=== PATIENT | male | born 1960 ===

== ENCOUNTER → 2017-01-20 | Outpatient (CLI) | payer OTHER ==
[~2017-01-20] MED LIST: ASPI-482 PO; ATORVASTATIN CA80 MG PO; BUPIVACAINE MPF 0.25% 10 ML VIAL. ONE; CHOL10003 PO; DICL100G18 TP; HYDR25TA9 PO; IOHEXOL 180 MG/ML 10 ML VIAL. ONE; LAMO200T PO; METF500T4 PO; METH-37 PO; MOME13HF IH; MULT-208 PO; OXYC-323 PO; PROVENTIL HFA6.7 GM IH; SILD100T PO; TRAV5DRO EACHEYE; methylPREDNISolone ACETATE 80 MG/ML VIAL. ONE
--- NOTE | 2017-01-20 23:33 | PAIN ---
DATE OF SERVICE: 01/20/2017 INITIAL CONSULTATION FOR PAIN CLINIC CHIEF COMPLAINT: Right hip pain. HISTORY OF PRESENT ILLNESS: This is a 56-year-old male who presents with history of pain for about a year, increasing in his right hip, worse with walking and standing and change in positions. The patient reports that he is on his feet most of his working day, this has been exacerbating as well, only on the right side. The left hip has no real pain or problems. The patient reports it is sharp, throbbing, stabbing, burning and aching, worse with standing and climbing stairs, especially with putting all his weight on one side on his right side. It does awaken him from sleep at night, sometimes all night long, sometimes he is able to sleep. The patient reports it does not affect his bowel or bladder control. It does affect his ability to walk significantly using a cane in his right hand. The patient reports he had some trigger point injections in November 2016, which were not helpful, just in the posterior gluteus. He has been taking some oxycodone, which has been helpful. The patient has not had any other therapies at this time. He is doing some stretching on his own but no other formal therapies or treatment for the pain. The patient did have x-ray of his hip showing [id number] appearance of the right hip joint compared to the left, which appears relatively normal. The patient reports no loss of motor function but significant fatigability with the right leg and hip to the point where he feels unstable. He has not given out on him, and he has not fallen because he is using his cane to walk. The patient reports his disability rate from 0 to 10, 10 being the worst, it is at 9 with family home responsibilities, 8 with occupation, 10 with recreation, 7 with social activity, 5 with sexual behavior, self care and life support activities. PAST MEDICAL HISTORY: Significant for hypertension, type 2 diabetes, glaucoma, weight loss, arthritis in the patient's knees and low back as well as his neck. PREVIOUS SURGERY: Includes a right knee meniscectomy. CURRENT MEDICATIONS: Include oxycodone, hydrochlorothiazide, lamotrigine and daily baby aspirin. ALLERGIES: The patient has no known drug allergies. FAMILY HISTORY: Significant for no major medical problems or conditions that he is aware of. SOCIAL HISTORY: The patient does not drink and does not use tobacco or smoke. 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 REVIEW OF SYSTEMS: The patient's review of systems is positive for those items mentioned in history of present illness. All systems reviewed and otherwise negative. It is complete, full and well documented on the patient's chart. PHYSICAL EXAMINATION: VITAL SIGNS: The patient's blood pressure is 133/79, pulse 105, respirations 18, temperature 98.9 degrees Fahrenheit. Height is 5 feet 10 inches. Weight is 279 pounds. GENERAL: The patient is awake, alert, oriented and appropriate, very pleasant demeanor. HEENT: Head shows normocephalic and atraumatic. Extraocular movements are intact and symmetrical. Oral cavity: His mucous membranes are moist and pink. Dentition is intact. NECK: Shows anterior throat supple without palpable lymphadenopathy noted. Swallow reflex is symmetrical. CHEST: Shows normal on inspection. Breath sounds clear to auscultation bilaterally. HEART: Shows S1 and S2 clear. No murmurs auscultated. ABDOMEN: Obese, soft, nontender, nondistended. No palpable organomegaly. No rebound or guarding demonstrated. BACK: The patient's back shows spine grossly in the midline. Normal-appearing thoracic kyphosis and lumbar lordotic curvature. No previous bruises, lesions, rashes or scars are noted. Lumbar paraspinous muscle shows only some very mild tenderness in the lower lumbar distribution but only diffusely. Cervical paraspinous musculature shows some axpo-[id number] tenderness at the inferior aspect of the cervical paraspinous muscles as well as superomedial trapezius, both right and left, but again full rotational motion of the cervical spine without difficulty as well as of the low back. The patient's upper extremities show deep tendon reflexes at 2+ in the biceps and triceps tendons. Motor exam is strong with 5/5 zigzagger strength and biceps and triceps flexion. Peripheral pulses are 2+ in radial distribution. Lower extremities show deep tendon reflexes at 1+ in the patellar and tendo calcaneus tendons. Motor exam is strong with approximately 4/5 scale on the right with dorsiflexion and extension and quadriceps and hamstring flexion 5/5 on the left. The patient's peripheral pulses are 1+ posterior tibial and dorsalis pedis pulses. Straight leg raising noted to be negative for reproduction of radicular symptoms. Ye's maneuver, however, is positive on the right with external rotation of the right hip compared to the left, which is negative. The patient is able to stand but has difficulty trying to stand with all his weight on his right leg. He does report pain in the groin and in the anterior thigh as well as the lateral thigh. The patient is ambulating with a cane in his right hand, significant antalgic gait favoring his right lower extremity with a significant limp on the right side. IMPRESSION: 1. This is a 56-year-old male with about 1-year history of increasing pain in right hip radiating to the groin and consistent with intra-articular pathology. 2. X-rays of the hip showing significant [id number] appearance of the degenerative joint disease to a severe extent. 3. Type 2 diabetes. 4. Hypertension. 5. Arthritis. PLAN: Options were discussed with the patient including conservative medical management, physical therapy and interventional technique. He would like to pursue interventional techniques. We discussed a right hip intra-articular joint injection using description as well as anatomical models to describe the procedure. The patient would like to proceed with this. Risks were discussed including but not limited to bleeding, infection, possibility of intravascular injection sequelae, spread of local anesthetic and numbness, side effects of steroid medication as well as exposure to fluoroscopy and poor results regarding pain control. The patient understands and wishes to proceed. The patient will return to clinic in approximately 4 weeks for followup and was counseled on return appointment, activity level and side effects to be aware of. DIAGNOSIS: Right hip joint pain with primary osteoarthritis and right hip joint. PROCEDURE: Right intra-articular hip joint injection using C-arm fluoroscopic guidance under sterile prep and drape using local anesthetic. MEDICATION INJECTED: A total of 80 mg Depo-Medrol plus total of 3 mL of 0.25% bupivacaine plus 3 mL of Isovue for contrast. CONDITION AT DISCHARGE: Stable. The patient tolerated the procedure well and had no complications. JETHRO OTTO MD DR: GARRY/jose JOB#: [id number] / [id number]
== END | disposition home or self-care (01) ==
LOC: PNCL 13:15
PROVIDERS: ATTEND Anesthesiology
DX: M16.11 Unilateral primary osteoarthritis, right hip (principal); I10 Essential (primary) hypertension; M19.91 Primary osteoarthritis, unspecified site; E11.39 Type 2 diabetes mellitus with other diabetic ophthalmic complication; H40.9 Unspecified glaucoma; Z88.8 Allergy status to other drugs, medicaments and biological substances
CPT/HCPCS: 20610; J1040; J3490

== ENCOUNTER → 2017-02-03 | Outpatient (CLI) | payer OTHER ==
--- NOTE | 2017-02-03 14:49 | PAIN ---
DATE OF SERVICE: 02/03/2017 DATE OF SERVICE: 02/03/2017 DIAGNOSES: Right hip joint pain with primary osteoarthritis, right hip joint. HISTORY OF PRESENT ILLNESS: The patient is a 56-year-old male who returns for followup status post right hip joint injection. The patient reports about 50% improvement, but still has pain off and on, again worse with walking, standing, ambulating, climbing stairs or stepping up on a curb. The patient reports otherwise doing fairly well, better with sitting or lying down. It does awaken occasionally from sleep if he lies on his right side, but he sleeps about 5-6 hours a night. It does not wake him every night. He can reposition and get back to sleep. The patient reports it as aching, sharp pain radiating to the right groin with weightbearing rates it as 9 on a scale of 10 at worst, 8 on average and a 7 at least. The patient reports no new motor or sensory deficits, no new changes. PHYSICAL EXAMINATION: VITAL SIGNS: The patient's blood pressure is 124/81, pulse 90, respirations 16, temperature is 98.6 degrees Fahrenheit, height is 5 feet 10 inches, weight is 273 pounds. GENERAL: The patient is awake, alert, oriented, appropriate, very pleasant demeanor. HEENT: Head shows normocephalic, atraumatic. Extraocular movements are intact and symmetrical. Oral cavity shows mucous membranes moist and pink. Dentition is intact. NECK: Shows anterior throat supple without palpable lymphadenopathy noted. Swallow reflex is symmetrical. CHEST: Shows normal on inspection. Breath sounds clear to auscultation bilaterally. HEART: Shows S1 and S2 clear. ABDOMEN: Obese, soft, nontender, nondistended. BACK: Shows spine grossly midline. LOWER EXTREMITIES: Show deep tendon reflexes at 1+ in the patellar and tendo calcaneus tendons. Motor exam is approximately 4 on a scale of 5 with right dorsiflexion, extension, quadriceps and hamstring flexion is 5/5 on the left. The patient has a positive Ye's sign on the right side, once again with external rotation of the hip in a supine position. Options were discussed with the patient and the patient's old chart was reviewed as his current medication regimen updated. Current review of systems updated today as well. We will proceed with a second right intra-articular hip joint injection with fluoroscopic guidance. Risks were again discussed including, but not limited to bleeding, infection, possibility of intravascular injection sequelae, spread of local anesthetic and numbness, side effects of steroid medication and poor results regarding pain control. The patient understands and wishes to proceed. The patient will return to clinic in approximately 2 weeks for followup. He was counseled as to return appointment, activity level and side effects to be aware of. DIAGNOSIS: Right hip joint pain with primary osteoarthritis, right hip joint. PROCEDURE: Right intra-articular hip joint injection using C-arm fluoroscopic guidance under sterile prep and drape using local anesthetic. Medication injected is a total of 3 mL of 0.25% bupivacaine, a total of 80 mg Depo-Medrol plus 3 mL of Isovue for contrast. CONDITION AT DISCHARGE: Stable. The patient tolerated procedure well, had no complications. JETHRO OTTO MD DR: GARRY/jose JOB#: [id number] / [id number]
== END | disposition home or self-care (01) ==
LOC: PNCL 10:16
PROVIDERS: ATTEND Anesthesiology
DX: M16.11 Unilateral primary osteoarthritis, right hip (principal); Z88.8 Allergy status to other drugs, medicaments and biological substances
CPT/HCPCS: 20610; 77002; J1040; J3490

== ENCOUNTER → 2017-02-24 | Outpatient (CLI) | payer OTHER ==
--- NOTE | 2017-02-24 12:04 | PAIN ---
DATE OF SERVICE: 02/24/2017 DIAGNOSES: Right hip joint pain with primary osteoarthritis, right hip joint. HISTORY OF PRESENT ILLNESS: The patient is a 56-year-old male who returns for followup status post right hip joint injection x 2, last seen 02/03/2017. The patient did very well about 80% improvement until about 1 week ago when he was stretching while lying supine and pulled his hip further than he normally would and had some significant pain in this area and has been returning similar to the area prior to his injection in the right hip and groin, some in the gluteus as well, but mostly in the right groin, hip; worse with standing, walking, changing positions, putting all his weight on 1 foot such as climbing stairs. The patient reports otherwise doing well. He was doing quite well. He was working with greater ease and comfort as he is on his feet most of his working day. He is a vending machine servicer and now, the pain is becoming more significant, especially with working activities, standing, putting his weight on his right leg. The patient reports the pain is sharp and stabbing, rates it a 9 on a scale of 10 at its worst, 8 at its average and 7 on at its least, it is 7 today. The patient reports no new motor or sensory deficits, no new other changes. PHYSICAL EXAMINATION: VITAL SIGNS: The patient's blood pressure is 142/84, pulse 85, respirations 18, temperature 98.1 degrees Fahrenheit. Height is 5 feet 10 inches, weight is 275 pounds. GENERAL: The patient is awake, alert, oriented, appropriate, very pleasant demeanor. HEENT: Head shows normocephalic, atraumatic. Extraocular movements are intact, symmetrical. Oral cavity, mucous membranes are moist and pink. Dentition is intact. NECK: Shows anterior throat supple without palpable lymphadenopathy noted. Swallow reflex is symmetrical. CHEST: Shows normal on inspection. Breath sounds are clear to auscultation bilaterally. HEART: Shows S1, S2 clear. No murmurs auscultated. ABDOMEN: Soft, nontender, nondistended, obese. No palpable organomegaly is noted. BACK: Shows spine grossly midline. Normal appearing thoracic kyphosis and lumbar lordotic curvature. The patient's lower extremities showed deep tendon reflexes 1+ in the patellar and tendo calcaneus tendons are equal. Motor exam is approximately 4 on a scale of 5 on the right with dorsiflexion, extension and 5/5 on the left. The patient does have a positive Ye sign on the right side with external rotation of the right hip with significant pain in the hip and the groin region. Options were discussed with the patient and the patient's old chart was reviewed as his current medication regimen updated. Current review of systems is updated today as well and we will proceed with a third in a series right intra-articular hip joint injection with fluoroscopic guidance. Risks were again discussed including, but not limited to bleeding, infection, possibility of intravascular injection sequelae, spread of local anesthetic and numbness, side effects of steroid medication and poor results regarding pain control. The patient understands and wishes to proceed. The patient will return to clinic in approximately 2 weeks for followup, was counseled to return appointment, activity level and side effects to be aware of. DIAGNOSIS: Primary osteoarthritis, right hip joint with hip joint pain. PROCEDURE: Right intra-articular hip joint injection under local anesthetic using C-arm fluoroscopic guidance under sterile prep and drape. MEDICATION INJECTED: A total of 80 mg Depo-Medrol plus 3 mL of 0.25% bupivacaine after negative aspiration and 5 mL of Isovue for contrast. CONDITION AT DISCHARGE: Stable. The patient tolerated procedure well, had no complications. JETHRO OTTO MD DR: GARRY/jose JOB#: [id number] / [id number]
== END | disposition home or self-care (01) ==
LOC: PNCL 10:43
PROVIDERS: ATTEND Anesthesiology
DX: M16.11 Unilateral primary osteoarthritis, right hip (principal)
CPT/HCPCS: 20610; 77002; J1040; J3490